=== PATIENT | female | born 1990 | race Caucasian/White ===

== ENCOUNTER 2019-02-10 22:51 | Emergency (ER) | payer MEDICAID, OTHER ==
[~2019-02-10] VITALS: Ht 167.6 cm; Wt 90.0 kg
[2019-02-11] MEDS ORDERED: IBUPROFEN 600 MG TABLET PO ONE (00:15)
[2019-02-11 00:30] VITALS: BP 133/80
== END 2019-02-11 01:01 | disposition home or self-care (01) ==
LOC: EMS 22:55
DX: S63.501A Unspecified sprain of right wrist, initial encounter (principal); X50.3XXA Overexertion from repetitive movements, initial encounter; Y93.89 Activity, other specified; Y92.89 Other specified places as the place of occurrence of the external cause; Y99.8 Other external cause status